=== PATIENT | male | born 1945 | race Caucasian/White ===

== ENCOUNTER 2017-11-12 09:44 | Day surgery (SDC) | payer MEDICARE ==
[~2017-11-12] VITALS: Ht 180.3 cm; Wt 94.0 kg
[~2017-11-12 09:44] MED LIST: ASPI81CH; ATOR40TA; Amiodarone HCl200 MG; Carvedilol6.25 MG; Excedrin Extra1 EACH; FERSU220EL; FOLI1; FURO40; POTCHL20ER; QUET100; THIA100I
[2017-11-12] MEDS ORDERED: LISI5 (10:36)
[2017-11-12] MEDS ORDERED: CLOP75 (10:36)
[2017-11-12] MEDS ORDERED: ROSU10TA (10:37)
== END 2017-11-12 11:53 | disposition home or self-care (01) ==
LOC: ORSCSDS 09:44
DX: Z12.11 Encounter for screening for malignant neoplasm of colon (principal); D12.4 Benign neoplasm of descending colon; D37.4 Neoplasm of uncertain behavior of colon; I10 Essential (primary) hypertension; E78.5 Hyperlipidemia, unspecified; I25.10 Atherosclerotic heart disease of native coronary artery without angina pectoris; M79.7 Fibromyalgia; G47.33 Obstructive sleep apnea (adult) (pediatric); Z79.82 Long term (current) use of aspirin; Z79.899 Other long term (current) drug therapy
CPT/HCPCS: 88305; J7120

== ENCOUNTER 2018-08-14 10:10 | Day surgery (SDC) | payer MEDICARE ==
[~2018-08-14] VITALS: Ht 180.3 cm; Wt 101.0 kg
[~2018-08-14 10:10] MED LIST changes: +CARV6.25 PO; +CLOP75; +CLOP75 PO; +Ferrous Sulfat325 M2 PO; +GABA300 PO; +LISI5; +LOSA50; +Prinivil10 MG PO; +ROSU10TA; +Simvastatin40 MG PO; +TRAM50 PO; +VENL75ER
--- NOTE | 2018-08-14 12:05 | NUR ---
08/14/18 1205 Alaina Santiago V NO COMPLICATIONS DURING PROCEDURE.
--- NOTE | 2018-08-14 12:07 | NUR ---
08/14/18 1207 Alaina Santiago V LATE ENTRY. AFTER ASSESSING PT, PROCEDURE CHANGED TO NURSE SEDATION. DR. CHAUDHRY OK TO PROCEED WITH NURSE SEDATION.
== END 2018-08-14 12:02 | disposition home or self-care (01) ==
LOC: ORSCSDS 10:10
PROVIDERS: Surgery
PROC: 0DB98ZX Excision of Duodenum, Via Natural or Artificial Opening Endoscopic, Diagnostic (ICD-10-PCS; principal; 2018-08-14 11:45)
DX: R10.13 Epigastric pain (principal); K26.9 Duodenal ulcer, unspecified as acute or chronic, without hemorrhage or perforation; I10 Essential (primary) hypertension; K21.9 Gastro-esophageal reflux disease without esophagitis; E78.5 Hyperlipidemia, unspecified; G47.30 Sleep apnea, unspecified; E66.9 Obesity, unspecified; Z68.30 Body mass index [BMI] 30.0-30.9, adult; F17.210 Nicotine dependence, cigarettes, uncomplicated; Z79.01 Long term (current) use of anticoagulants; Z79.899 Other long term (current) drug therapy
CPT/HCPCS: 88305; 88342; J7120